=== PATIENT | male | born 1955 | race Caucasian/White ===

== ENCOUNTER 2017-07-25 13:00 | Emergency (ER) | payer OTHER ==
[2017-07-25 13:10] VITALS: O2SAT 98
--- NOTE | 2017-07-25 13:15 | ERPHSYRPT ---
- History of Present Illness Time Seen by Provider: 07/25/17 13:10 Source: patient Exam Limitations: no limitations Patient Subjective Stated Complaint: Pt states "I tripped over a baby gate and hit the corner of a table and split my lip" Triage Nursing Assessment: Pt alert and oriented X 3, skin pwd. pt ambulates without difficulty, able to speak in clear full sentences. Pt lost a tooth and has an approx 1 inch laceration noted to right side of lip Physician History: The patient is a 62-year-old male who tripped while trying to step over a baby gate in the house. His family had brought a new dog with them for a visit and they put a baby gate to keep the dog from getting into the rest the house. The patient caught his toe on the gate while stepping over it, causing him to fall forward, striking his upper lip on a countertop. The lip is cut. He had partial dentures that were broken. His last tetanus vaccination was more than 5 years ago. His past medical record is significant for high cholesterol and hypertension. Occurred: just prior to arrival Reason for Fall: tripped, fell from standing pos Injuries/Pain Location: face Loss of Consciousness: no loss of consciousness Quality: sharpness Severity of Pain-Max: moderate Severity of Pain-Current: moderate Modifying Factors: Improves With: nothing Associated Symptoms (Fall): denies symptoms Allergies/Adverse Reactions: No Known Drug Allergies Allergy (Unverified 04/12/14 15:10) Home Medications: Clopidogrel Bisulfate 75 mg [PLAVIX 75 MG Tablet] 75 mg PO DAILY 04/12/14 [History] Guaifenesin/Pseudoephedrne HCl [Mucinex D ER 600-60 mg Tablet] 1 ea PO BID 04/12 [History] Ibuprofen 200 mg [Motrin 200 mg] 2 tab PO Q6HPRN 04/12/14 [History] Lisinopril 20 mg PO DAILY 04/12/14 [History] Metoprolol Tartrate 50 mg [Lopressor 50 MG] 100 mg PO DAILY 04/12/14 [ History] Simvastatin 80 mg PO DAILY 04/12/14 [History] Triamterene/Hydrochlorothiazid [Triamterene-Hctz 37.5-25 mg Tb] 1 tab PO DAILY 04/12/14 [History] Hx Tetanus, Diphtheria Vaccination/Date Given: Yes Hx Influenza Vaccination/Date Given: Yes Hx Pneumococcal Vaccination/Date Given: No Immunizations Up to Date: Yes - Review of Systems Constitutional: No Fever, No Chills Eyes: No Symptoms Ears, Nose, & Throat: No Symptoms Respiratory: No Cough, No Dyspnea Cardiac: No Chest Pain, No Edema, No Syncope Abdominal/Gastrointestinal: No Abdominal Pain, No Nausea, No Vomiting, No Diarrhea Genitourinary Symptoms: No Dysuria Musculoskeletal: No Back Pain, No Neck Pain Skin: Other (laceration) Neurological: No Dizziness, No Focal Weakness, No Sensory Changes Psychological: No Symptoms Endocrine: No Symptoms Hematologic/Lymphatic: No Symptoms Immunological/Allergic: No Symptoms All Other Systems: Reviewed and Negative - Past Medical History Pertinent Past Medical History: Yes Neurological History: No Pertinent History ENT History: No Pertinent History Cardiac History: Arrhythmia, High Cholesterol, Hypertension, Myocardial Infarction ([place]) Respiratory History: CHF Endocrine Medical History: No Pertinent History GI Medical History: No Pertinent History Other Medical History: SLEEP APENA - Past Surgical History Past Surgical History: Yes Neuro Surgical History: No Pertinent History Cardiac: Cardiac Catheterization, Cardiac Stent, Internal Defibrillator, Pacemaker Respiratory: No Pertinent History Gastrointestinal: Appendectomy Genitourinary: No Pertinent History Musculoskeletal: No Pertinent History Male Surgical History: No Pertinent History - Social History Smoking Status: Never smoker Exposure to second hand smoke: Yes Drug Use: none Patient Lives Alone: Yes - Nursing Vital Signs Nursing Vital Signs: Initial Vital Signs Temperature 97.6 F 07/25/17 13:04 Pulse Rate 92 H 07/25/17 13:04 Respiratory Rate 18 07/25/17 13:04 Blood Pressure 160/88 07/25/17 13:04 O2 Sat by Pulse Oximetry 98 07/25/17 13:04 Pain Scale Pain Intensity 4 - [place] Coma Score Best Eye Response ([place]): (4) open spontaneously Best Verbal Response ([place]): (5) oriented Best Motor Response ([place]): (6) obeys commands Uziel Total: 15 - Physical Exam General Appearance: no apparent distress, alert Head Injury: no evidence of injury Eye Exam: PERRL/EOMI ENT Exam: oral injury (Oral examination reveals poor dentition. There is an approximately 2 cm linear lesion on the right side of the upper lip. The linear laceration is within the pink of the lip does not cross the vermilion border.) Neck Exam: normal inspection, No tenderness Respiratory/Chest Exam: normal breath sounds, No chest tenderness, No respiratory distress Cardiovascular Exam: normal heart sounds, regular rate/rhythm Gastrointestinal Exam: soft, No tenderness, No distention, No guarding, No ecchymosis Rectal Exam: not done Back Exam: normal inspection, No vertebral tenderness Extremity Exam: normal inspection, normal range of motion, pelvis stable, No deformities Neurologic Exam: alert, oriented x 3, cooperative, sensation nml, No motor deficits Skin Exam: normal color, warm, dry, laceration (2 cm laceration to right side of upper lip.) SpO2 Interpretation: normal SpO2: 98 Oxygen Delivery: Room Air - Progress Progress: unchanged Counseled pt/family regarding: diagnosis - Departure Time of Disposition: 13:18 Departure Disposition: Home Clinical Impression: Laceration of lip Condition: Stable Critical Care Time: No Referrals: SAHIL ABDI [Primary Care Provider] - Additional Instructions: You have a laceration in the pink part of your upper lip. This does not require any suturing. It should heal quickly. You were given a tetanus vaccination in the ER. Take Tylenol No. 3 one tablet every 4-6 hours as needed for pain. Follow-up as needed. Prescriptions: Codeine Phosphate/APAP #3 [Tylenol #3 Tablet] 1 tab PO Q4-6HPRN PRN #12 tablet PRN Reason: Pain
[2017-07-25] MEDS ORDERED: Adacel Vial IM ONE ×2 (13:22→13:26)
[2017-07-25 13:36] VITALS: BP 142/68; PULSE 76
== END 2017-07-25 13:37 | disposition home or self-care (01) ==
LOC: ED 13:00
DX: S01.511A Laceration without foreign body of lip, initial encounter (principal); W18.09XA Striking against other object with subsequent fall, initial encounter; Y92.009 Unspecified place in unspecified non-institutional (private) residence as the place of occurrence of the external cause; I10 Essential (primary) hypertension; E78.00 Pure hypercholesterolemia, unspecified; Z79.899 Other long term (current) drug therapy
CPT/HCPCS: 90471; 90715; 99283